=== PATIENT | male | born 1990 | race Caucasian/White ===

== ENCOUNTER 2019-04-06 10:32 | Emergency (ER) | payer MEDICAID ==
[2019-04-06] MEDS ORDERED: Bupivacaine 0.5% 10 ML SDV INFILT ONE (10:33)
--- NOTE | 2019-04-06 12:35 | EDM.PDOC ---
ED HPI GENERAL MEDICAL PROBLEM - General Chief Complaint: General Stated Complaint: TOOTH PAIN Time Seen by Provider: 04/06/19 12:12 Source of Information: Reports: Patient History Limitations: Reports: No Limitations - History of Present Illness INITIAL COMMENTS - FREE TEXT/NARRATIVE: 35-year-old male with history of poor dentition who is had some dental pain and swelling for some time in his upper teeth. However, last night, he developed worsening pain in his left upper jaw and he has swelling in his left upper jaw and into his left upper lip and nose area. He has had no fevers or chills. He reports the pain as a 10/10 at present. It is sharp and throbbing and radiates all over the left side of his face in the middle of his face. He has no neck tenderness or stiffness. He is having no trouble swallowing or breathing. He has had some nausea but no vomiting. There are no other associated signs or symptoms. There are no other modifying factors. 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 Surgical history as detailed below.) - Past Surgical History HEENT Surgical History: Reports: Oral Surgery, Tonsillectomy Social & Family History - Family History Family Medical History: Noncontributory - Tobacco Use Smoking Status *Q: Current Every Day Smoker Years of Tobacco use: 15 Packs/Tins Daily: 0.5 Used Tobacco, but Quit: No - Caffeine Use Caffeine Use: Reports: Coffee, Soda - Alcohol Use Alcohol Use History: No - Recreational Drug Use Recreational Drug Use: No - Living Situation & Occupation Social History Comment: He is here with his mother. ED ROS GENERAL - Review of Systems Review Of Systems: See Below Constitutional: Reports: No Symptoms HEENT: Reports: Dental Pain, Other (Facial swelling) Respiratory: Reports: No Symptoms Cardiovascular: Reports: No Symptoms GI/Abdominal: Reports: No Symptoms : Reports: No Symptoms Musculoskeletal: Reports: No Symptoms Skin: Reports: No Symptoms Neurological: Reports: Headache Psychiatric: Reports: Anxiety Hematologic/Lymphatic: Reports: No Symptoms Immunologic: Reports: No Symptoms ED EXAM, GENERAL - Physical Exam Exam: See Below Exam Limited By: No Limitations General Appearance: Alert, WD/WN, Moderate Distress (Pain) Eye Exam: Bilateral Eye: EOMI, Normal Inspection Ear Exam: Bilateral Ear: Auricle Normal Nose: Normal Inspection, Normal Mucosa, No Blood, Other (Swelling in left upper lip to the filtrum of the nose) Throat/Mouth: Normal Voice, No Airway Compromise, Other (Extremely poor dentition with gingival erythema and edema. No fluctuant areas seen.) Head: Atraumatic, Normocephalic Neck: Normal Inspection, Supple, Non-Tender Respiratory/Chest: No Respiratory Distress, Lungs Clear, Normal Breath Sounds, No Accessory Muscle Use, Chest Non-Tender Cardiovascular: Normal Peripheral Pulses, Regular Rate, Rhythm, No Edema, JVD Peripheral Pulses: 2+: Radial (L), Radial (R) GI/Abdominal: Normal Bowel Sounds, Soft, Non-Tender, No Organomegaly Back Exam: Normal Inspection Extremities: Normal Inspection, Normal Range of Motion, Non-Tender, No Pedal Edema, Normal Capillary Refill Neurological: Alert, Oriented, CN II-XII Intact, No Motor/Sensory Deficits Psychiatric: Anxious Skin Exam: Warm, Dry, Intact, Normal Color, No Rash Course - Vital Signs Last Recorded V/S: Last Vital Signs Temp 36.8 C 04/06/19 12:53 Pulse 65 04/06/19 12:53 Resp 14 04/06/19 12:53 BP 130/72 04/06/19 12:53 Pulse Ox 99 04/06/19 12:53 - Orders/Labs/Meds Meds: Medications Discontinued Medications Generic Name Dose Route Start Last Admin Trade Name Freq PRN Reason Stop Dose Admin Clindamycin HCl 450 mg 04/06/19 12:36 04/06/19 12:48 Cleocin PO 04/06/19 12:37 450 mg ONETIME ONE Administration Clindamycin HCl Confirm 04/06/19 12:42 Cleocin Administered 04/06/19 12:43 Dose 450 mg .ROUTE .[facility] ONE - Re-Assessments/Exams Free Text/Narrative Re-Assessment/Exam: 04/06/19 12:29: 0.5% Marcaine used to place a dental block to his left upper teeth. 3 mL's were used. There was good anesthesia and good relief of his pain. Complications. The patient tolerated this well. The plan will be to place patient on clindamycin and have him continue ibuprofen and Tylenol for pain. He is to follow-up with the dentist this coming week. The patient will be given one dose of clindamycin now and he will be sent home with another dose to take tonight. A prescription was sent to his pharmacy for him to get filled in the morning to begin the completion of his treatment at that time. Departure - Departure Time of Disposition: 12:35 Disposition: Home, Self-Care 01 Condition: Good (Improved) Clinical Impression: Dental abscess, Facial cellulitis, Dental caries - Discharge Information Prescriptions: Clindamycin HCl 450 mg PO TID 10 Days #90 capsule Instructions: Dental Abscess, [id number] Referrals: PCP,None [Primary Care Provider] - Forms: ED Department Discharge Additional Instructions: You have a dental abscess associated with the teeth in your left upper mouth. There is an infection in your face associated with this. Medication as prescribed (clindamycin). You should take probiotics or eat yogurt daily while you are on the antibiotics. You should continue to take ibuprofen and Tylenol for your pain. Follow-up with a dentist as soon as you can arrange. Back to the emergency department for trouble swallowing, trouble breathing, high fever, spreading infection or any other concerning sign or symptom.
[2019-04-06] MEDS ORDERED: Clindamycin HCl 150 MG Cap PO ONE (12:36)
[2019-04-06] MEDS ORDERED: Clindamycin HCl 150 MG Cap ONE (12:42)
== END 2019-04-06 12:56 | disposition home or self-care (01) ==
LOC: FB.ED 10:32
DX: K04.7 Periapical abscess without sinus (principal); K02.9 Dental caries, unspecified; L03.211 Cellulitis of face; F17.210 Nicotine dependence, cigarettes, uncomplicated
CPT/HCPCS: 64400; 99282; A9270; J3490

== ENCOUNTER 2019-04-07 14:52 | Emergency (ER) | payer MEDICAID ==
[2019-04-07] MEDS ORDERED: Ondansetron 4 MG Tab.DIS PO ONE (14:53)
[2019-04-07] MEDS ORDERED: Sodium Chloride 0.9% 10 ML Syringe FLUSH PRN (16:08)
--- NOTE | 2019-04-07 16:08 | EDM.PDOC ---
ED HPI GENERAL MEDICAL PROBLEM - General Chief Complaint: General Stated Complaint: fever Time Seen by Provider: 04/07/19 15:50 Source of Information: Reports: Patient History Limitations: Reports: No Limitations - History of Present Illness INITIAL COMMENTS - FREE TEXT/NARRATIVE: 28-year-old male who was seen by myself yesterday for dental abscess with facial cellulitis on his left upper lip and intraoral area. The patient had a dental block Lasix because of severe pain in the area and this helped tremendously. He was also placed on clindamycin and I gave him his doses yesterday and gave him a prescription for him to get filled today. He reports that he has been taking the medications as directed and seems to be doing somewhat better until this morning when he began to have shaking chills he had a fever up to 102F and then he developed vomiting. He has had vomiting 6-7 and the pain went back up in his face to a 10/10. The pain was sharp and shooting and aching and throbbing. His pain currently is a 7-8/10 and his fever has defervesced after taking some Tylenol this morning. He has noted that the swelling has moved up his face and he came back in as was directed by myself worsening symptoms. He's had no weakness or dizziness. He had been able to drink liquids well prior to this. He is swallowing okay. He is breathing okay. There are no other associated signs or symptoms. There are no other modifying factors. 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: Reports: Acetaminophen, NSAIDS Generalized Pain Score (Numeric/FACES): 10 - Related Data Allergies Allergy/AdvReac Type Severity Reaction Status Date / Time No Known Allergies Allergy Verified 04/07/19 15:10 Home Meds: Home Meds Clindamycin HCl 450 mg PO TID 10 Days #90 capsule 04/06/19 [Rx] Ondansetron [Zofran ODT] 4 mg PO Q6H PRN #10 tab.dis 04/07/19 [Rx] Past Medical History Musculoskeletal History: Reports: Fracture, Other (See Below) Other Musculoskeletal History: hx fx L 5th digit, fx R arm, rx L ribs, Neurological History: Reports: Concussion, Migraines Psychiatric History: Reports: ADD, Anxiety, Depression, Psych Hospitalization(s) Other Psychiatric History: hx ETOH abuse Dermatologic History: Reports: Eczema - Infectious Disease History Infectious Disease History: Reports: Chicken Pox - Past Surgical History HEENT Surgical History: Reports: Oral Surgery, Tonsillectomy Musculoskeletal Surgical History: Reports: ORIF (Left fifth finger) Social & Family History - Tobacco Use Smoking Status *Q: Current Every Day Smoker Years of Tobacco use: 13 Packs/Tins Daily: 35 - Caffeine Use Caffeine Use: Reports: Coffee, Energy Drinks, Soda - Alcohol Use Alcohol Use History: No - Recreational Drug Use Recreational Drug Use: Yes Recreational Drug Type: Reports: Marijuana/Hashish - Living Situation & Occupation Social History Comment: He is here with his significant other. They just recently moved here from [place]. ED ROS GENERAL - Review of Systems Review Of Systems: See Below Constitutional: Reports: Fever, Chills, Malaise HEENT: Reports: Dental Pain, Other (Initial swelling) Respiratory: Reports: No Symptoms Cardiovascular: Reports: No Symptoms GI/Abdominal: Reports: Nausea, Vomiting : Reports: No Symptoms Musculoskeletal: Reports: No Symptoms Skin: Reports: No Symptoms Neurological: Reports: Headache Hematologic/Lymphatic: Reports: No Symptoms Immunologic: Reports: No Symptoms ED EXAM, GENERAL - Physical Exam Exam: See Below Exam Limited By: No Limitations General Appearance: Alert, WD/WN, Moderate Distress, Other (Should be noted though that the patient looks more swollen.) Eye Exam: Bilateral Eye: EOMI, Normal Inspection, PERRL Ears: Normal External Exam Ear Exam: Bilateral Ear: Auricle Normal Nose: Normal Inspection, Normal Mucosa, No Blood Throat/Mouth: Normal Voice, No Airway Compromise, Other (Poor dentition with gingival erythema and edema to the upper teeth with extremely carious dentition in this area) Head: Atraumatic, Facial Swelling Neck: Normal Inspection, Supple, Non-Tender, Full Range of Motion Respiratory/Chest: No Respiratory Distress, Lungs Clear, Normal Breath Sounds, No Accessory Muscle Use, Chest Non-Tender Cardiovascular: Normal Peripheral Pulses, Regular Rate, Rhythm (Initially patient was tachycardic however on my exam he was in the 90s.), No JVD Peripheral Pulses: 2+: Radial (L), Radial (R), Dorsalis Pedis (L), Dorsalis Pedis (R) GI/Abdominal: Normal Bowel Sounds, Soft, Non-Tender, No Mass Back Exam: Normal Inspection Extremities: Normal Inspection, Normal Range of Motion, Non-Tender, No Pedal Edema, Normal Capillary Refill Neurological: Alert, Oriented, CN II-XII Intact, Normal Cognition, No Motor/ Sensory Deficits Skin Exam: Warm, Dry, Intact, Normal Color, No Rash Course - Vital Signs Last Recorded V/S: Last Vital Signs Temp 37.1 C 04/07/19 18: Pulse 102 H 04/07/19 18:19 Resp 18 04/07/19 18: BP 119/90 04/07/19 18: Pulse Ox 100 04/07/19 18:19 - Orders/Labs/Meds Labs: Laboratory Tests 04/07/19 04/07/19 04/07/19 Range/Units 16:45 16:45 16:45 WBC 10.7 (4.5-12.0) X10-3/uL RBC 5.08 (4.30-5.75) x10(6)uL Hgb 16.1 (13.5-17.8) g/dL Hct 45.9 (30.0-51.3) % MCV 90.5 (80-96) fL MCH 31.6 (27.7-33.6) pg MCHC 34.9 (32.2-35.4) g/dL RDW 12.7 (11.5-15.5) % Plt Count 161 (125-369) X10(3)uL MPV 7.8 (7.4-10.4) fL Neut % (Auto) 86.7 H (46-82) % Lymph % (Auto) 6.4 L (13-37) % Barry % (Auto) 4.8 (4-12) % Eos % (Auto) 1 (1.0-5.0) % Baso % (Auto) 1 (0-2) % Neut # (Auto) 9.2 H (1.6-8.3) # Lymph # (Auto) 0.7 (0.6-5.0) # Barry # (Auto) 0.5 (0.0-1.3) # Eos # (Auto) 0.1 (0.0-0.8) # Baso # (Auto) 0.1 (0.0-0.2) # Sodium (135-145) mmol/L Potassium (3.5-5.3) mmol/L Chloride (100-110) mmol/L Carbon Dioxide (21-32) mmol/L BUN (7-18) mg/dL Creatinine (0.70-1.30) mg/dL Est Cr Clr Drug Dosing mL/min Estimated GFR (MDRD) (>60) BUN/Creatinine Ratio (9-20) Glucose (80-116) mg/dL Lactic Acid 1.8 (0.4-2.2) mmol/L Calcium (8.6-10.2) mg/dL Magnesium 1.8 (1.8-2.5) mg/dL Total Bilirubin (0.1-1.3) mg/dL AST (5-25) IU/L ALT (12-36) U/L Alkaline Phosphatase (56-112) IU/L C-Reactive Protein (0.5-0.9) mg/dL Total Protein (6.0-8.0) g/dL Albumin (3.5-5.2) g/dL Globulin g/dL Albumin/Globulin Ratio Urine Color (YELLOW) Urine Appearance (CLEAR) Urine pH (5.0-6.5) Ur Specific [place] (1.010-1.025) Urine Protein (NEGATIVE) mg/dL Urine Glucose (UA) (NORMAL) mg/dL Urine Ketones (NEGATIVE) mg/dL Urine Occult Blood (NEGATIVE) Urine Nitrite (NEGATIVE) Urine Bilirubin (NEGATIVE) Urine Urobilinogen (NEGATIVE) mg/dL Ur Leukocyte Esterase (NEGATIVE) Urine RBC (0-5) Urine WBC (0-5) Ur Squamous Epith Cells (NS,R,O) Urine Bacteria (NS) Urine Opiates Screen (NEGATIVE) Ur Oxycodone Screen (NEGATIVE) Ur Propoxyphene Screen (NEGATIVE) Ur Barbituates Screen (NEGATIVE) Ur Tricyclics Screen (NEGATIVE) Ur Phencyclidine Scrn (NEGATIVE) Ur Amphetamine Screen (NEGATIVE) Urine MDMA Screen (NEGATIVE) U Benzodiazepines Scrn (NEGATIVE) U Cocaine Metab Screen (NEGATIVE) U Marijuana (THC) Screen (NEGATIVE) 04/07/19 04/07/19 04/07/19 Range/Units 16:45 16:45 17:30 WBC (4.5-12.0) X10-3/uL RBC (4.30-5.75) x10(6)uL Hgb (13.5-17.8) g/dL Hct (30.0-51.3) % MCV (80-96) fL MCH (27.7-33.6) pg MCHC (32.2-35.4) g/dL RDW (11.5-15.5) % Plt Count (125-369) X10(3)uL MPV (7.4-10.4) fL Neut % (Auto) (46-82) % Lymph % (Auto) (13-37) % Barry % (Auto) (4-12) % Eos % (Auto) (1.0-5.0) % Baso % (Auto) (0-2) % Neut # (Auto) (1.6-8.3) # Lymph # (Auto) (0.6-5.0) # Barry # (Auto) (0.0-1.3) # Eos # (Auto) (0.0-0.8) # Baso # (Auto) (0.0-0.2) # Sodium 140 (135-145) mmol/L Potassium 3.5 (3.5-5.3) mmol/L Chloride 103 (100-110) mmol/L Carbon Dioxide 22 (21-32) mmol/L BUN 9 (7-18) mg/dL Creatinine 0.9 (0.70-1.30) mg/dL Est Cr Clr Drug Dosing 131.31 mL/min Estimated GFR (MDRD) > 60 (>60) BUN/Creatinine Ratio 10.0 (9-20) Glucose 101 (80-116) mg/dL Lactic Acid (0.4-2.2) mmol/L Calcium 9.8 (8.6-10.2) mg/dL Magnesium (1.8-2.5) mg/dL Total Bilirubin 1.2 (0.1-1.3) mg/dL AST 53 H (5-25) IU/L ALT 85 H (12-36) U/L Alkaline Phosphatase 100 (56-112) IU/L C-Reactive Protein 10.5 H* (0.5-0.9) mg/dL Total Protein 8.4 H (6.0-8.0) g/dL Albumin 4.2 (3.5-5.2) g/dL Globulin 4.2 g/dL Albumin/Globulin Ratio 1.0 Urine Color Yellow (YELLOW) Urine Appearance Clear (CLEAR) Urine pH 6.0 (5.0-6.5) Ur Specific [place] 1.005 L (1.010-1.025) Urine Protein Negative (NEGATIVE) mg/dL Urine Glucose (UA) Normal (NORMAL) mg/dL Urine Ketones 15 H (NEGATIVE) mg/dL Urine Occult Blood Negative (NEGATIVE) Urine Nitrite Negative (NEGATIVE) Urine Bilirubin Negative (NEGATIVE) Urine Urobilinogen Normal (NEGATIVE) mg/dL Ur Leukocyte Esterase Negative (NEGATIVE) Urine RBC 0-5 (0-5) Urine WBC 0-5 (0-5) Ur Squamous Epith Cells Occasional (NS,R,O) Urine Bacteria Rare H (NS) Urine Opiates Screen (NEGATIVE) Ur Oxycodone Screen (NEGATIVE) Ur Propoxyphene Screen (NEGATIVE) Ur Barbituates Screen (NEGATIVE) Ur Tricyclics Screen (NEGATIVE) Ur Phencyclidine Scrn (NEGATIVE) Ur Amphetamine Screen (NEGATIVE) Urine MDMA Screen (NEGATIVE) U Benzodiazepines Scrn (NEGATIVE) U Cocaine Metab Screen (NEGATIVE) U Marijuana (THC) Screen (NEGATIVE) 04/07/19 Range/Units 17:30 WBC (4.5-12.0) X10-3/uL RBC (4.30-5.75) x10(6)uL Hgb (13.5-17.8) g/dL Hct (30.0-51.3) % MCV (80-96) fL MCH (27.7-33.6) pg MCHC (32.2-35.4) g/dL RDW (11.5-15.5) % Plt Count (125-369) X10(3)uL MPV (7.4-10.4) fL Neut % (Auto) (46-82) % Lymph % (Auto) (13-37) % Barry % (Auto) (4-12) % Eos % (Auto) (1.0-5.0) % Baso % (Auto) (0-2) % Neut # (Auto) (1.6-8.3) # Lymph # (Auto) (0.6-5.0) # Barry # (Auto) (0.0-1.3) # Eos # (Auto) (0.0-0.8) # Baso # (Auto) (0.0-0.2) # Sodium (135-145) mmol/L Potassium (3.5-5.3) mmol/L Chloride (100-110) mmol/L Carbon Dioxide (21-32) mmol/L BUN (7-18) mg/dL Creatinine (0.70-1.30) mg/dL Est Cr Clr Drug Dosing mL/min Estimated GFR (MDRD) (>60) BUN/Creatinine Ratio (9-20) Glucose (80-116) mg/dL Lactic Acid (0.4-2.2) mmol/L Calcium (8.6-10.2) mg/dL Magnesium (1.8-2.5) mg/dL Total Bilirubin (0.1-1.3) mg/dL AST (5-25) IU/L ALT (12-36) U/L Alkaline Phosphatase (56-112) IU/L C-Reactive Protein (0.5-0.9) mg/dL Total Protein (6.0-8.0) g/dL Albumin (3.5-5.2) g/dL Globulin g/dL Albumin/Globulin Ratio Urine Color (YELLOW) Urine Appearance (CLEAR) Urine pH (5.0-6.5) Ur Specific [place] (1.010-1.025) Urine Protein (NEGATIVE) mg/dL Urine Glucose (UA) (NORMAL) mg/dL Urine Ketones (NEGATIVE) mg/dL Urine Occult Blood (NEGATIVE) Urine Nitrite (NEGATIVE) Urine Bilirubin (NEGATIVE) Urine Urobilinogen (NEGATIVE) mg/dL Ur Leukocyte Esterase (NEGATIVE) Urine RBC (0-5) Urine WBC (0-5) Ur Squamous Epith Cells (NS,R,O) Urine Bacteria (NS) Urine Opiates Screen Negative (NEGATIVE) Ur Oxycodone Screen Negative (NEGATIVE) Ur Propoxyphene Screen Negative (NEGATIVE) Ur Barbituates Screen Negative (NEGATIVE) Ur Tricyclics Screen Negative (NEGATIVE) Ur Phencyclidine Scrn Negative (NEGATIVE) Ur Amphetamine Screen Negative (NEGATIVE) Urine MDMA Screen Negative (NEGATIVE) U Benzodiazepines Scrn Negative (NEGATIVE) U Cocaine Metab Screen Negative (NEGATIVE) U Marijuana (THC) Screen Positive H (NEGATIVE) Meds: Medications Discontinued Medications Generic Name Dose Route Start Last Admin Trade Name Beatriz PRN Reason Stop Dose Admin Ceftriaxone Sodium Confirm 04/07/19 16:23 04/07/19 16:48 Rocephin Administered 04/07/19 16:24 Not Given Dose 1 gm .ROUTE .[facility] ONE Ceftriaxone Sodium 1 gm 04/07/19 16:24 04/07/19 16:48 Rocephin IVPUSH 04/07/19 16:25 1 gm ONETIME ONE Administration Ceftriaxone Sodium 1 gm/ 50 mls @ 200 mls/hr 04/07/19 16:11 04/07/19 16:48 Sodium Chloride IV 04/07/19 16:25 Not Given ONETIME ONE Sodium Chloride 1,000 mls @ 999 mls/hr 04/07/19 16:11 04/07/19 16:37 Normal Saline IV 04/07/19 17:11 999 mls/hr .BOLUS ONE Administration Ketorolac Tromethamine 30 mg 04/07/19 17:31 04/07/19 17:38 Toradol IVPUSH 04/07/19 17:32 30 mg ONETIME ONE Administration Ondansetron HCl 4 mg 04/07/19 16:11 04/07/19 16:37 Zofran IVPUSH 04/07/19 16:12 4 mg ONETIME ONE Administration Sodium Chloride 10 ml 04/07/19 16:08 Saline Flush FLUSH ASDIRECTED PRN Keep Vein Open - Re-Assessments/Exams Free Text/Narrative Re-Assessment/Exam: 04/07/19 18:08: Patient's blood tests were reassuring except for an elevated CRP at 10.8 which is consistent with his infectious process. He does not appear to be septic. He has markedly improved after IV fluids. There is swelling on his face that has extended from when I saw him yesterday morning, however, he actually appears to be improving at this point and I would expect the swelling to receipt and the infection to continue to resolve on the clindamycin. I will by the patient with a prescription of Zofran for nausea. I have instructed him to continue drinking plenty of fluids and to continue the clindamycin as previously. He was also admonished to continue the yogurt and or probiotics. He also needs to see a dentist. I feel that he is stable for discharge at this point. Departure - Departure Time of Disposition: 18:15 Disposition: Home, Self-Care 01 Condition: Good (Improved) Clinical Impression: Dental abscess, Facial cellulitis, Dehydration Vomiting with nausea, not intractable Qualifiers: Vomiting type: unspecified Qualified Code(s): R11.2 - Nausea with vomiting, unspecified - Discharge Information Prescriptions: Ondansetron [Zofran ODT] 4 mg PO Q6H PRN #10 tab.dis PRN Reason: Nausea/Vomiting Instructions: Ondansetron oral dissolving tablet, Ketorolac injection, Ondansetron injection, Dehydration, Adult, [id number], Cellulitis, Adult, Easy -to-Read Referrals: PCP,None [Primary Care Provider] - Forms: ED Department Discharge Additional Instructions: Your blood tests were reassuring. You seemed to have improved significantly with the IV fluids and medications that were given to you in the emergency department. You should continue to take the clindamycin as previously directed. You may take Tylenol and ibuprofen as needed for pain. Increase her fluid intake. Medication as prescribed today for nausea (Zofran 4 mg ODT). Continues to eat yogurt or take probiotics while you are on the antibiotics. Arrange to see a dentist as soon as you can to get those unsalvageable and problem using teeth extracted. Back to the emergency department for wanting vomiting, inability to take liquids, worsening signs of infection or any other concerning sign or symptom.
[2019-04-07] MEDS ORDERED: cefTRIAXone 1 GM in Sodium Chloride 0.9% 50 ML IV ONE (16:11)
[2019-04-07] MEDS ORDERED: Sodium Chloride 0.9% 1,000 ML IV ONE (16:11)
[2019-04-07] MEDS ORDERED: Ondansetron 4 MG/2 ML SDV IVPUSH ONE (16:11)
[2019-04-07] MEDS ORDERED: cefTRIAXone 1 GM Vial ONE (16:23)
[2019-04-07] MEDS ORDERED: cefTRIAXone 1 GM Vial IVPUSH ONE (16:24)
[2019-04-07] MEDS ORDERED: Ketorolac 30 MG/ML SDV IVPUSH ONE (17:31)
== END 2019-04-07 18:30 | disposition home or self-care (01) ==
LOC: FB.ED 14:52
DX: K04.7 Periapical abscess without sinus (principal); L03.211 Cellulitis of face; K02.9 Dental caries, unspecified; E86.0 Dehydration; R11.2 Nausea with vomiting, unspecified; F17.210 Nicotine dependence, cigarettes, uncomplicated; Z98.890 Other specified postprocedural states
CPT/HCPCS: 36415; 80053; 80305; 81001; 83605; 83735; 85025; 86140; 87040; 96361; 96374; 96375; 99283; A9270; J0696; J1885; J2405; J7030